=== PATIENT | male | born 1990 | race Caucasian/White ===

== ENCOUNTER 2017-12-12 17:41 | Emergency (ER) | payer SELFPAY ==
[~2017-12-12] VITALS: Ht 175.3 cm; Wt 85.3 kg
[2017-12-12 17:47] VITALS: BP_SYST 128
[2017-12-12] MEDS ORDERED: DIPH-TET-PERTUS Vaccine 0.5 ML VIAL (ADACEL) I.M. ONE (18:00)
[2017-12-12] MEDS ORDERED: LIDOCAINE 1% 10 MG/ML, 20 ML MDV INJ ONE (18:00)
[2017-12-12] MEDS ORDERED: LIDOCAINE 1%, 20 ML MDV 20 ML ONE (18:09)
[2017-12-12] MEDS ORDERED: BACITRACIN 1 GM OINT TP ONE (18:15)
[2017-12-12 18:26] VITALS: BP_SYST 128
== END 2017-12-12 18:26 ==
LOC: SED 17:41
DX: S61.511A Laceration without foreign body of right wrist, initial encounter (principal); R03.0 Elevated blood-pressure reading, without diagnosis of hypertension; W26.8XXA Contact with other sharp object(s), not elsewhere classified, initial encounter; Y93.89 Activity, other specified; Y92.89 Other specified places as the place of occurrence of the external cause; Y99.8 Other external cause status
CPT/HCPCS: 12001; 90471; 90715; 99283; J2001